=== PATIENT | male | born 1995 | race Caucasian/White ===

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

== ENCOUNTER → 2018-02-12 | Outpatient (CLI) | payer BC ==
[2018-02-12 19:18] LABS: Valproic Acid (Depakene) 81.1 ug/mL (50.0-100.0)
[2018-02-12 19:20] LABS: ALT 22 U/L (10-49); AST 33 U/L (14-35); Albumin/Globulin Ratio 2.14 (1.20-2.10); Alkaline Phosphatase 83 U/L (41-126); Bilirubin, Conjugated <0.20 mg/dL (0.20-0.40); Cholesterol 128 mg/dL (0-200); Globulin 2.2 g/dL (2.1-3.7); Glucose 84 mg/dL (70-110); LDL Cholesterol,Calculated 68.8 mg/dL (0.0-131.0); Total Bilirubin 0.4 mg/dL (0.2-1.2); Total Protein 6.9 g/dL (6.2-8.2)
[2018-02-12 19:57] LABS: Hemoglobin A1C 4.7 % (4.0-6.0)
== END ==
LOC: LABWHC1 09:40
PROVIDERS: ATTEND Psychiatry & Neurology Psychiatry
DX: Z51.81 Encounter for therapeutic drug level monitoring (principal); Z79.899 Other long term (current) drug therapy
CPT/HCPCS: 36415; 80061; 80076; 80164; 82947; 83036; 84439; 84443

== ENCOUNTER 2018-08-03 20:06 | Emergency (ER) | payer BC, OTHER ==
[2018-08-03] MEDS ORDERED: TOPICAL SKIN ADHESIVE 1 EACH AMP TOPICAL ONE (22:28)
[2018-08-03] MEDS ORDERED: DIPH,PERTUS(ACELL)TETVAC-LF 0.5 ML VIAL IM ONE (22:57)
--- NOTE | 2018-08-03 23:10 | ED ---
General Adult HPI - General Source: patient, family Mode of arrival: ambulatory Limitations: no limitations <Dewayne Nye - Last Filed: 08/03/18 23:01> <Shannan Woodard - Last Filed: 08/05/18 06:41> - General Chief complaint: Wound/Laceration Stated complaint: Head lac Time Seen by Provider: 08/03/18 21:18 - History of Present Illness Initial comments: Patient is a 23-year-old autistic male presenting to the emergency department with his mother for a laceration to the left supraorbital region. Mother states that he was playing in the garage when he had an object and lacerated his skin. Mother states that they immediately came to the emergency department with minimal blood loss on the way. Mother states that she did not give him any medication to alleviate the pain. Patient denies any pain with extraocular movements. Patient denies any blurry vision, headache or double vision. Mother is unaware of his last tetanus shot. (Dewayne Nye) - Related Data Allergies Allergy/AdvReac Type Severity Reaction Status Date / Time No Known Allergies Allergy Verified 08/03/18 20:40 Review of Systems ROS Other: All systems not noted in ROS Statement are negative. <Dewayne Nye - Last Filed: 08/03/18 23:01> ROS Other: All systems not noted in ROS Statement are negative. <Shannan Woodard P - Last Filed: 08/05/18 06:41> ROS Statement: Those systems with pertinent positive or pertinent negative responses have been documented in the HPI. Past Medical History Additional Past Medical History / Comment(s): autism History of Any Multi-Drug Resistant Organisms: None Reported Past Surgical History: Hernia Repair Past Psychological History: ADD/ADHD Smoking Status: Never smoker Past Alcohol Use History: None Reported Past Drug Use History: None Reported <Dewayne Nye - Last Filed: 08/03/18 23:01> General Exam Limitations: no limitations General appearance: alert, in no apparent distress Head exam: Present: normocephalic, other (Laceration to the left supraorbital region measuring 2.5 cm linear.) Eye exam: Present: normal appearance, PERRL, EOMI, other. Absent: scleral icterus, conjunctival injection Pupils: Present: normal accommodation ENT exam: Present: normal exam Neck exam: Present: normal inspection Respiratory exam: Present: normal lung sounds bilaterally Cardiovascular Exam: Present: regular rate, normal rhythm, normal heart sounds Extremities exam: Present: normal inspection Back exam: Present: normal inspection, full ROM Neurological exam: Present: alert Psychiatric exam: Present: normal affect, normal mood Skin exam: Present: warm, normal color <Dewayne Nye - Last Filed: 08/03/18 23:01> Course Vital Signs 08/03/18 08/03/18 20:37 23:20 Temperature 98.3 F 98.4 F Pulse Rate 78 72 Respiratory 18 16 Rate Blood Pressure 126/81 122/82 O2 Sat by Pulse 96 97 Oximetry Procedures - Laceration Laceration #1 Consent Obtained: verbal consent Indication: laceration Site: face Size (cm): 3 Description: linear Depth: simple, single layer Pre-repair: irrigated extensively Type of Sutures: other (Tissue adhesive) Patient Tolerated Procedure: well <Dewayne Nye - Last Filed: 08/03/18 23:01> Medical Decision Making <Dewayne Nye - Last Filed: 08/03/18 23:01> <Shannan Woodard - Last Filed: 08/05/18 06:41> - Medical Decision Making Patient is a 23-year-old male presenting to the emergency department for a laceration to the left supraorbital region. I repaired her laceration with tissue adhesive and set of sutures because a CT concern due to the location near the eye. Patient is at autistic and is not able to fully follow commands also the patient is strong. thus, the safest and most appropriate option was to use tissue adhesive to repair laceration. Patient was also given a tetanus shot. Mom was advised to follow with primary care. She was also advised to return to emergency department if symptoms worsen. Case discussed with physician. (Dewayne Nye) I was available for consultation in the emergency department. The history and physical exam were done by the midlevel provider. I was consulted for this patient's care. I reviewed the case with the midlevel provider and based on their presentation of the patient, I agree with the assessment, medical decision making and plan of care as documented. Chart was dictated using [employer] dictation software. Attempts were made to correct any dictation errors however some typographical errors may persist. (Shannan Woodard) Disposition Is patient prescribed a controlled substance at d/c from ED?: No Time of Disposition: 23:10 <Dewayne Nye - Last Filed: 08/03/18 23:01> <Shannan Woodard - Last Filed: 08/05/18 06:41> Clinical Impression: Laceration Disposition: HOME SELF-CARE Condition: Stable Instructions (If sedation given, give patient instructions): Laceration (DC), Skin Adhesive Care (ED) Additional Instructions: Please follow proper wound care instructions. Please follow with primary care. Please return to emergency department if symptoms worsen. Referrals: Edenilson Gonsales DO [Primary Care Provider] - 1-2 days
[2018-08-03 23:21] VITALS: BP 122/82; PULSE 72; RESP 16; TEMP 98.4
== END 2018-08-03 23:21 | disposition home or self-care (01) ==
LOC: EC 20:06
DX: S01.81XA Laceration without foreign body of other part of head, initial encounter (principal); Z23 Encounter for immunization; W45.8XXA Other foreign body or object entering through skin, initial encounter; Y93.89 Activity, other specified; Y92.59 Other trade areas as the place of occurrence of the external cause
CPT/HCPCS: 12013; 90471; 90715; 99282

== ENCOUNTER → 2019-03-17 | Outpatient (CLI) | payer BC, OTHER ==
[2019-03-17 10:27] LABS: Basophils % (A) 1 %; Eosinophils # (A) 0.2 k/uL (0-0.7); Eosinophils % (A) 3 %; HCT 49.4 % (39.0-53.0); HGB 16.9 gm/dL (13.0-17.5); Lymphocytes # (A) 2.2 k/uL (1.0-4.8); Lymphocytes % (A) 32 %; MCH 31.6 pg (25.0-35.0); MCHC 34.3 g/dL (31.0-37.0); MCV 92.2 fL (80.0-100.0); Mean Platelet Volume 9.1; Monocytes # (A) 0.6 k/uL (0-1.0); Monocytes % (A) 9 %; Neutrophils # (A) 3.7 k/uL (1.3-7.7); Neutrophils % (A) 53 %; Platelet Count 167 k/uL (150-450); RBC 5.36 m/uL (4.30-5.90); RDW 12.8 % (11.5-15.5); WBC 6.9 k/uL (3.8-10.6)
[2019-03-17 16:32] LABS: Valproic Acid (Depakene) 58.1 ug/mL (50.0-100.0)
[2019-03-17 17:12] LABS: African American GFR (CKD) 166.6 (60.0-200.0); Albumin 4.6 g/dL (3.80-4.90); Albumin/Globulin Ratio 2.19 (1.60-3.17); Bilirubin, Conjugated 0.2 mg/dL (0.20-0.40); Bilirubin,Unconjugated 0.4 mg/dL; Calcium 9.4 mg/dL (8.7-10.3); Chol/HDL Ratio 3.28; Globulin 2.1 g/dL (1.6-3.3); LDL Cholesterol,Calculated 68.4 mg/dL (0.0-131.0); Non-African American GFR(CKD) 143.7 (60.0-200.0); Potassium 4.5 mmol/L (3.5-5.5); Total Bilirubin 0.6 mg/dL (0.2-1.2); Total Protein 6.7 g/dL (6.2-8.2); VLDL Calculation 29.6 mg/dL (5.00-40.00)
[2019-03-17 18:30] LABS: Hemoglobin A1C 4.8 % (4.0-6.0)
== END | disposition home or self-care (01) ==
LOC: LABWHC1 09:09
PROVIDERS: ATTEND Nurse Practitioner Family
DX: Z51.81 Encounter for therapeutic drug level monitoring (principal); Z79.899 Other long term (current) drug therapy
CPT/HCPCS: 36415; 80048; 80061; 80076; 80164; 83036; 84439; 84443; 85025

== ENCOUNTER → 2020-03-02 | Outpatient (CLI) | payer BC, OTHER ==
[2020-03-02 10:26] LABS: HCT 46.3 % (39.0-53.0); HGB 16.4 gm/dL (13.0-17.5); MCH 32.3 pg (25.0-35.0); MCHC 35.5 g/dL (31.0-37.0); MCV 90.8 fL (80.0-100.0); Mean Platelet Volume 8.3; Platelet Count 186 k/uL (150-450); RBC 5.09 m/uL (4.30-5.90); WBC 4.2 k/uL (3.8-10.6)
[2020-03-02 13:05] LABS: Eosinophils # (M) 0.08 k/uL (0-0.7); Lymphocytes # (M) 1.72 k/uL (1.0-4.8); Monocytes # (M) 0.25 k/uL (0-1.0); Neutrophils # (M) 2.14 k/uL (1.3-7.7); Neutrophils % (M) 51 %; Nucleated Red Blood Cells 0 /100 WBC (0-0); Total Cells Counted 100
[2020-03-02 13:08] LABS: Reactive Lymphocytes Present
[2020-03-02 13:13] LABS: Anisocytosis (M) Present
[2020-03-02 14:57] LABS: Albumin 4.5 g/dL (3.80-4.90); Albumin/Globulin Ratio 2.14 (1.60-3.17); Bilirubin, Conjugated 0.2 mg/dL (0.20-0.40); Bilirubin,Unconjugated 0.3 mg/dL; Chol/HDL Ratio 3.32; Globulin 2.1 g/dL (1.6-3.3); LDL Cholesterol,Calculated 67.8 mg/dL (0.0-131.0); Total Bilirubin 0.5 mg/dL (0.2-1.2); Total Protein 6.6 g/dL (6.2-8.2); VLDL Calculation 11.2 mg/dL (5.00-40.00)
[2020-03-02 15:04] LABS: T4, Free (Free Thyroxine) 1.1 ng/dL (0.80-1.80)
[2020-03-02 16:11] LABS: Valproic Acid (Depakene) 79.2 ug/mL (50.0-100.0)
[2020-03-02 17:36] LABS: Hemoglobin A1C 4.2 % (4.0-6.0)
== END | disposition home or self-care (01) ==
LOC: LABWHC1 08:53
PROVIDERS: ATTEND Nurse Practitioner Family
DX: Z51.81 Encounter for therapeutic drug level monitoring (principal); Z79.899 Other long term (current) drug therapy
CPT/HCPCS: 36415; 80061; 80076; 80164; 82947; 83036; 84439; 84443; 85025

== ENCOUNTER → 2020-11-19 | Outpatient (CLI) | payer BC, OTHER ==
[2020-11-19 16:51] LABS: Basophils # (A) 0.05 X 10*3/uL (0.00-0.10); Basophils % (A) 0.7 %; Eosinophils # (A) 0.27 X 10*3/uL (0.04-0.35); HCT 49.1 % (39.6-50.0); HGB 16.6 g/dL (13.0-17.0); Lymphocytes # (A) 2.22 X 10*3/uL (0.90-5.00); Lymphocytes % (A) 32.9 %; MCH 31.6 pg (27.0-32.0); MCHC 33.8 g/dL (32.0-37.0); MCV 93.3 fL (80.0-97.0); Mean Platelet Volume 12.4 fL (9.5-12.2); Monocytes # (A) 0.68 X 10*3/uL (0.20-1.00); Monocytes % (A) 10.1 %; Neutrophils # (A) 3.49 X 10*3/uL (1.80-7.70); Neutrophils % (A) 51.7 %; Platelet Count 181 X 10*3/uL (140-440); RBC 5.26 X 10*6/uL (4.40-5.60); RDW 12.3 % (11.5-14.5); WBC 6.75 X 10*3/uL (4.50-10.00)
[2020-11-19 19:50] LABS: Albumin 4.5 g/dL (3.80-4.90); Albumin/Globulin Ratio 1.96 (1.60-3.17); Bilirubin, Conjugated 0.2 mg/dL (0.20-0.40); Bilirubin,Unconjugated 0.2 mg/dL; Chol/HDL Ratio 3.5; Globulin 2.3 g/dL (1.6-3.3); LDL Cholesterol,Calculated 76.8 mg/dL (0.0-131.0); Total Bilirubin 0.4 mg/dL (0.2-1.2); Total Protein 6.8 g/dL (6.2-8.2); VLDL Calculation 18.2 mg/dL (5.00-40.00)
[2020-11-19 19:52] LABS: Valproic Acid (Depakene) 91.4 ug/mL (50.0-100.0)
[2020-11-19 20:00] LABS: T4, Free (Free Thyroxine) 1.2 ng/dL (0.80-1.80)
[2020-11-19 20:34] LABS: Hemoglobin A1C 4.4 % (4.0-6.0)
== END | disposition home or self-care (01) ==
LOC: LABWHC1 08:57
PROVIDERS: ATTEND Nurse Practitioner Family
DX: Z79.899 Other long term (current) drug therapy (principal)
CPT/HCPCS: 36415; 80061; 80076; 80164; 82947; 83036; 84439; 84443; 85025